=== PATIENT | female | born 2000 | race African-American/Black ===

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

== ENCOUNTER 2023-09-11 05:42 | Emergency (ER) | payer MEDICAID, OTHER ==
[~2023-09-11] VITALS: Ht 167.6 cm; Wt 90.2 kg
[2023-09-11 07:22] VITALS: BP 117/79; PULSE 110; RESP 17; TEMP 98.9; O2SAT 98
[2023-09-11] MEDS: DexAMETHasone SOD PHOS 10MG/1ML VIAL INJ IM ONE (07:53)
[2023-09-11] MEDS: KETOROLAC TROMETH 30 MG/ML 1ML VIAL IM ONE (07:54)
[2023-09-11 08:35] LABS: Rapid Strep A Screen-Throat Positive
[2023-09-11] MEDS ORDERED: PENI500T2 PO (08:44)
[2023-09-11] MEDS ORDERED: NAPR-746 PO (08:44)
[2023-09-11] MEDS ORDERED: LIDO2SOL26 MT (08:44)
== END 2023-09-11 08:49 | disposition home or self-care (01) ==
LOC: ER 05:42
DX: J02.0 Streptococcal pharyngitis (principal)
CPT/HCPCS: 87880; 96372; 99284; J1100; J1885